=== PATIENT | male | born 1995 | race African-American/Black ===

== ENCOUNTER 2021-10-12 16:47 | Emergency (ER) | payer MEDICAID ==
[~2021-10-12] VITALS: Ht 175.3 cm; Wt 61.5 kg
[2021-10-12 17:02] VITALS: BP 125/85
[2021-10-12] MEDS ORDERED: LIDOCAINE HCL/EPINEPHRINE 1%-EPI 1:100,000 20 ML VIAL INFIL ONE (18:15)
[2021-10-12] MEDS ORDERED: AMOXICILLIN/POTASSIUM CLAVULANATE 875/125MG TAB PO ONE (19:15)
[2021-10-12] MEDS ORDERED: DEXAMETHASONE 4MG TABLET PO ONE (19:15)
[2021-10-12] MEDS ORDERED: IBUP-2028 MT (21:28)
[2021-10-12] MEDS ORDERED: TOPUD PO (21:28)
[2021-10-12] MEDS ORDERED: AMOX-424 MT (21:28)
== END 2021-10-12 21:57 | disposition home or self-care (01) ==
LOC: ER 16:47
DX: J36 Peritonsillar abscess (principal); Z87.891 Personal history of nicotine dependence
CPT/HCPCS: 10060; 99283; J8540

== ENCOUNTER 2021-10-13 14:23 | Emergency (ER) | payer MEDICAID ==
[~2021-10-13] VITALS: Ht 175.3 cm; Wt 62.0 kg
[~2021-10-13 14:23] MED LIST: AMOX-424 MT; IBUP-2028 MT; TOPUD PO
[2021-10-13 14:41] VITALS: BP 120/75
== END 2021-10-13 22:51 | disposition left against medical advice (07) ==
LOC: ER 14:23
DX: Z53.21 Procedure and treatment not carried out due to patient leaving prior to being seen by health care provider (principal)